=== PATIENT | female | born 1995 | race Hispanic/Latino ===

== ENCOUNTER 2020-01-11 14:00 | Emergency (ER) | payer MEDICAID ==
[2020-01-11 15:37] LABS: #Eosinphils 0.1 thou/uL (0.0-0.7); #Lymphocytes 2.1 thou/uL (1.20-3.40); #Monocytes 0.8 thou/uL (0.11-0.59); #Neutrophils 6.3 thou/uL (1.40-6.50); %Basophils 0.4 % (0.0-1.0); %Lymphocytes 22.2 % (21.0-51.0); %Monocytes 8.7 % (0.0-10.0); %Neutrophils 67.7 % (42.0-75.0); Hemoglobin 12.9 g/dL (12.0-16.0); Mean Corpuscular HGB CONC 32.6 g/dL (32.0-36.0); Mean Corpuscular Volume 86.1 fL (78.0-98.0); Platelet Count 239 thou/uL (130-400); RBC Distribution Width 12.4 % (11.5-14.5); Red Blood Cell (RBC) Count 4.59 mill/uL (4.20-5.40); White Blood Cell (WBC) Count 9.3 thou/uL (4.8-10.8)
--- NOTE | 2020-01-11 15:56 | ULT ---
Exam: Transabdominal pelvic ultrasound HISTORY: Pelvic pain and pressure. Comparison none TECHNIQUE: Transabdominal imaging of the pelvis is performed. Ovaries are interrogated with grayscale , color flow, Doppler imaging and spectral wave form analysis FINDINGS: Uterus is identified, measuring 11.5 x 7.2 x 9.8 cm. There are no myometrial masses Within the endometrium is a gestational sac, and pole. There is no subchorionic hemorrhage. No yolk sac heart tones: 155 bpm [place]-rump length 5.5 cm corresponding to gestational age of 12 weeks 1 day Right ovary: Normal echotexture, measuring 2.5 x 3.0 x 2.8 cm Left ovary: Normal echotexture, measuring 1.9 x 1.6 x 2.3 cm. No free fluid Ovarian Doppler: Vascular flow to the left and right ovary IMPRESSION: A single intrauterine gestation with heart tones. Gestational age by crown-r[facility] is 12 weeks 1 day.
[2020-01-11 16:05] LABS: ALT (SGPT) 40 U/L (8-55); AST (SGOT) 25 U/L (5-34); Albumin 4.3 g/dL (3.5-5.0); Alkaline Phosphatase 50 U/L (40-110); Anion Gap 10 mmol/L (10-20); BUN (Urea Nitrogen) 7 mg/dL (7.0-18.7); Bilirubin, Total 0.3 mg/dL (0.2-1.2); Calc. Creatinine Clearance 0 mL/min (70-130); Calcium 9.5 mg/dL (7.8-10.44); Carbon Dioxide 22 mmol/L (22-29); Chloride 107 mmol/L (98-107); Estimated GFR-MDRD Greater than 90; Globulin 3.2 g/dL (2.4-3.5); Glucose 77 mg/dL (70-105); Potassium 3.8 mmol/L (3.5-5.1); Protein, Total 7.5 g/dL (6.0-8.3); Sodium 135 mmol/L (136-145)
[2020-01-11 17:22] LABS: Bacteria/HPF 3+ HPF (None Seen); Bilirubin Negative (Negative); Blood, Urine Negative (Negative); Clarity Clear (Clear); Glucose, Urine (Dipstick) Normal (Negative); Ketone, Urine 10 mg/dL (Negative); Leukocyte 75 Leu/uL (Negative); Mucous/LPF Rare LPF (<2+); Nitrite 2+ (Negative); Protein, Urine (Dipstick) 10 mg/dL (Neg-Trace); RBC/HPF 0-3 HPF (0-3); Specific Gravity, Urine 1.023 (1.002-1.036); Urobilinogen Normal mg/dL (Less than 2); pH, Urine 5.5 (5.0-9.0)
== END 2020-01-11 18:12 | disposition home or self-care (01) ==
LOC: ERS 14:00
DX: O23.41 Unspecified infection of urinary tract in pregnancy, first trimester (principal); Z3A.11 11 weeks gestation of pregnancy
CPT/HCPCS: 76856; 80053; 81003; 81015; 84702; 85025; 86900; 86901; 87077; 87086; 87186; 93976

== ENCOUNTER 2020-03-18 14:44 | Outpatient (CLI) | payer OTHER ==
--- NOTE | 2020-03-18 16:18 | ULT ---
OB ULTRASOUND: HISTORY: anatomy FINDINGS: A single live intrauterine gestation is seen with measurements corresponding to an estimated gestatio nal age of 22 weeks, 1 dayand KIEL at 07/21/2020. The estimated weight measures 461 g or 1 pound (16% by Hadlock criteria). biometry: BPD: 5.38 cm, 22 weeks 3 days HC: 19.71 cm, 22 weeks 0 days AC: 16.39 cm, 21 weeks 4 days FL: 3.8 cm, 22 weeks 4 days heart rate: 140bpm Placenta: Anterior Placenta previa: No KATHLEEN: 14.7cm Cervical length: 4.3cm A three-vessel cord, cord insertion, kidneys, urinary bladder, stomach, 4 chambered heart, late ral ventricles, cerebellum, spine, lips/nose, upper and lower extremities are visualized. No definite anomalies are seen. IMPRESSION: Single live intrauterine gestation of 22 weeks 1 dayestimated gestational age and KIEL at 07/21/2020
== END 2020-03-18 14:45 | disposition home or self-care (01) ==
LOC: BICULT 14:44
PROVIDERS: ATTEND Family Medicine
DX: Z34.02 Encounter for supervision of normal first pregnancy, second trimester (principal); Z3A.22 22 weeks gestation of pregnancy
CPT/HCPCS: 76805